=== PATIENT | male | born 1975 | race Caucasian/White ===

== ENCOUNTER 2023-01-22 12:07 | Outpatient (CLI) | payer OTHER, SELFPAY ==
--- NOTE | ~2023-01-22 | XR_ITS ---
EXAMINATION: XR abdomen/kub 1V INDICATION: Kidney stones TECHNIQUE: Supine views of the abdomen were obtained on 2 radiographs. COMPARISON: None FINDINGS: A 2 mm stone projects at the lower pole of the left kidney. A 4 mm calcification projects i n the right upper quadrant, possibly at the right renal pelvis. There are phleboliths of the pelvis. No definite additional urinary tract calculi are identified. The bowel gas pattern is normal. A moder ate volume of colonic stool is present. IMPRESSION: 1. Left nephrolithiasis and possible stone of the right renal pelvis. Correlate for right flank pain. Reviewed, dictated and finalized at location B.
== END 2023-01-22 12:08 | disposition home or self-care (01) ==
LOC: ANHIMG 12:12
PROVIDERS: PCP Physician Assistant; Visit Provider Urology
DX: N20.0 Calculus of kidney (principal)
CPT/HCPCS: 74018